=== PATIENT | male | born 1990 | race American Indian/Alaskan Native ===

== ENCOUNTER 2017-06-21 22:16 | Emergency (ER) | payer OTHER ==
[2017-06-21 23:37] LABS: Hematocrit 49.4 % (35.5-45.6); Hemoglobin 16.2 gm/dl (11.8-15.2); Mean Corpuscular HGB Conc 33 % (32-34); Mean Corpuscular Hemoglobin 29 pg (28-32); Mean Corpuscular Volume 87 fl (84-94); Platelet Count 201 K/mm3 (140-440); Red Blood Count 5.66 M/mm3 (3.65-5.03); White Blood Count 14.6 K/mm3 (4.5-11.0)
[2017-06-22] LABS: Alanine Aminotransferase 19 units/L (7-56); Albumin 5.6 g/dL (3.9-5); Albumin/Globulin Ratio 1.4 %; Alkaline Phosphatase 78 units/L (35-129); Anion Gap 24 mmol/L; BUN/Creatinine Ratio 9.28; Blood Urea Nitrogen 13 mg/dL (9-20); Calcium 10.7 mg/dL (8.4-10.2); Carbon Dioxide 23 mmol/L (22-30); Chloride 89.7 mmol/L (98-107); Glucose 165 mg/dL (75-100); Potassium 4.9 mmol/L (3.6-5.0); Sodium 132 mmol/L (137-145); Total Protein 9.7 g/dL (6.3-8.2)
[2017-06-22 01:41] LABS: Bilirubin,Urine MOD (Negative); Blood,Urine NEG (Negative); Ketones,Urine TR mg/dL (Negative); Leukocyte Esterase,Urine NEG (Negative); Mucus,Urine 3+ /HPF; Nitrite,Urine NEG (Negative)
[2017-06-22] MEDS ORDERED: NACL 0.9% 1000 ML 1,000 ML IV ONE (04:24)
[2017-06-22] MEDS ORDERED: ROCEPHIN/NS 1 GM/50 ML 1 GM/50 ML BAG IV ONE ×2 (04:35→04:41)
--- NOTE | 2017-06-22 04:52 | Emergency Department Report ---
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 Pt recalls having some dysuria. No fever, no rigors, no chills, no cough, no SOB MD complaint: nausea, vomiting, diarrhea, abdominal pain -: Gradual (yesterday) Description of Vomiting: food contents (recently ingested food materials), watery Description of Diarrhea: water Associated Abdominal Pain: Yes Location: diffuse Radiation: none Severity: moderate Pain Scale: 6 Quality: cramping, aching Consistency: intermittent Improves with: none Worsens with: none Associated Symptoms: loss of appetite, malaise, nausea/vomiting, dysuria, weakness. denies: myalgias, chest pain, cough, fever/chills, rash, shortness of breath, syncope - Related Data Previous Rx's Medication Instructions Recorded Last Taken Type Amoxicillin/K Clav Tab [Augmentin 1 tab PO Q12HR #20 tab 06/22/17 Unknown Rx 875 mg] Dicyclomine [Bentyl] 20 mg PO QID #24 tablet 06/22/17 Unknown Rx Ondansetron [Zofran TAB] 4 mg PO Q8HR PRN #16 tablet 06/22/17 Unknown Rx Allergies Allergy/AdvReac Type Severity Reaction Status Date / Time lactose Allergy Vomiting Verified 06/21/17 22:35 ED Review of Systems ROS: Stated complaint: N/V, DEHYDRATION Other details as noted in HPI Comment: All other systems reviewed and negative Constitutional: malaise, weakness. denies: chills, diaphoresis, fever Eyes: denies: eye pain, eye discharge, vision change ENT: denies: ear pain, throat pain, dental pain, hearing loss, epistaxis Respiratory: denies: cough, orthopnea, shortness of breath, SOB with exertion Cardiovascular: denies: chest pain, palpitations, dyspnea on exertion, edema, syncope Endocrine: denies: no symptoms reported, see HPI, excessive sweating, intolerance to cold, increased hunger, increased thirst, increased urine Gastrointestinal: abdominal pain, nausea, vomiting, diarrhea. denies: constipation, hematemesis, hematochezia Genitourinary: urgency, dysuria. denies: frequency, discharge Musculoskeletal: denies: back pain, joint swelling, arthralgia, myalgia Skin: denies: lesions, change in color, change in hair/nails Neurological: weakness. denies: headache, numbness ED Past Medical Hx - Past Medical History Previous Medical History?: No - Surgical History Past Surgical History?: No - Social History Smoking Status: Never Smoker Substance Use Type: None - Medications Home Medications: Home Medications Medication Instructions Recorded Confirmed Last Taken Type Amoxicillin/K Clav Tab [Augmentin 1 tab PO Q12HR #20 tab 06/22/17 Unknown Rx 875 mg] Dicyclomine [Bentyl] 20 mg PO QID #24 tablet 06/22/17 Unknown Rx Ondansetron [Zofran TAB] 4 mg PO Q8HR PRN #16 tablet 06/22/17 Unknown Rx ED Physical Exam - General Limitations: No Limitations General appearance: alert, in distress (mild to moderate) - Head Head exam: Present: atraumatic, normocephalic, normal inspection - Eye Eye exam: Present: normal appearance, PERRL, EOMI. Absent: scleral icterus, conjunctival injection Pupils: Present: normal accommodation - ENT ENT exam: Present: mucous membranes dry - Neck Neck exam: Present: normal inspection, tenderness, full ROM. Absent: meningismus, lymphadenopathy - Respiratory Respiratory exam: Present: normal lung sounds bilaterally. Absent: respiratory distress, wheezes, chest wall tenderness, accessory muscle use, decreased breath sounds - Cardiovascular Cardiovascular Exam: Present: regular rate, normal rhythm, normal heart sounds. Absent: tachycardia, irregular rhythm, systolic murmur - GI/Abdominal GI/Abdominal exam: Present: soft, tenderness (diffuse), hypoactive bowel sounds. Absent: rebound, rigid, pulsatile mass - Rectal Rectal exam: Present: deferred - Extremities Exam Extremities exam: Present: normal inspection, full ROM, normal capillary refill - Back Exam Back exam: Present: normal inspection, full ROM. Absent: CVA tenderness (L) - Neurological Exam Neurological exam: Present: alert, oriented X3, CN II-XII intact ED Course Vital Signs 06/21/17 06/22/17 06/22/17 22:35 05:04 05:05 Temperature 97.9 F 101.0 F H Pulse Rate 67 Respiratory 22 20 20 Rate Blood Pressure 113/69 Blood Pressure 136/87 [Left] O2 Sat by Pulse 100 100 Oximetry 06/22/17 06:35 Temperature 99.0 F Pulse Rate 55 L Respiratory 18 Rate Blood Pressure Blood Pressure 109/61 [Left] O2 Sat by Pulse 99 Oximetry - Reevaluation(s) Reevaluation #1: 06/22/17 07:16 Pt feels much better ED Medical Decision Making - Lab Data Result diagrams: 06/21/17 23:20 06/21/17 23:20 Critical Care Time: No Critical care attestation.: If time is entered above; I have spent that time in minutes in the direct care of this critically ill patient, excluding procedure time. ED Disposition Clinical Impression: UTI (urinary tract infection), Nausea and vomiting Disposition: TO HOME OR SELFCARE Is pt being admited?: No Does the pt Need Aspirin: No Condition: Stable Instructions: Urinary Tract Infection in Men (ED), Acute Nausea and Vomiting ( ED) Additional Instructions: Fluids and bed rest Prescriptions: Amoxicillin/K Clav Tab [Augmentin 875 mg] 1 tab PO Q12HR #20 tab Dicyclomine [Bentyl] 20 mg PO QID #24 tablet Ondansetron [Zofran TAB] 4 mg PO Q8HR PRN #16 tablet PRN Reason: Vomiting Referrals: PRIMARY CARE, [Primary Care Provider] - 3-5 Days Time of Disposition: 07:21
[2017-06-22] MEDS ORDERED: TORADOL ONE (05:01)
[2017-06-22] MEDS ORDERED: TORADOL IV ONE (05:03)
[2017-06-22 05:37] LABS: Anisocytosis 1+; Basophils % (Manual) 0 % (0.0-1.8); Blastocytes % (Manual) 0 %; Diff Status Complete; Eosinophils % (Manual) 0 % (0.0-4.3)
[2017-06-22 08:17] VITALS: BP 99/47
== END 2017-06-22 09:46 | disposition home or self-care (01) ==
LOC: ED 22:16
DX: N39.0 Urinary tract infection, site not specified (principal); R11.2 Nausea with vomiting, unspecified; Z91.040 Latex allergy status
CPT/HCPCS: 36415; 80053; 81001; 85007; 85025; 96365; 96375; 99283; J0696; J1885; J7030

== ENCOUNTER 2018-11-24 19:47 | Emergency (ER) | payer OTHER ==
--- NOTE | 2018-11-24 20:17 | Emergency Department Report ---
Chief Complaint: Abdominal Pain Stated Complaint: DEHYDRATION/ABDOMINAL PAIN/N/V Time Seen by Provider: 11/24/18 20:13 - HPI History of Present Illness: Pt is c/o N/V that began two days ago he states he also epigastric abdominal pain (+) dysuria has not been drinking water no diarrhea, no fever (+)smoke, non drinker (+) HIV, last had CD4 count in august which he believes was "400" VSS MSE complete MSE screening note: Focused history and physical exam performed. ED Disposition for MSE Condition: Stable
[2018-11-24] MEDS ORDERED: NACL 0.9% 1000 ML 1,000 ML IV ONE (20:18)
[2018-11-24 21:05] LABS: Basophils # (Auto) 0.1 K/mm3 (0.0-0.1); Basophils % (Auto) 0.9 % (0.0-1.8); Hematocrit 37.1 % (35.5-45.6); Hemoglobin 12.1 gm/dl (11.8-15.2); Lymphocytes % (Auto) 13.7 % (13.4-35.0); Mean Corpuscular HGB Conc 33 % (32-34); Mean Corpuscular Volume 71 fl (84-94); Monocytes # (Auto) 0.5 K/mm3 (0.0-0.8); Monocytes % (Auto) 6.8 % (0.0-7.3); Platelet Count 354 K/mm3 (140-440); Red Blood Count 5.22 M/mm3 (3.65-5.03); Red Cell Distribution Width 17.8 % (13.2-15.2)
[2018-11-24 21:10] LABS: Alanine Aminotransferase 24 units/L (7-56); BUN/Creatinine Ratio 15; Blood Urea Nitrogen 16 mg/dL (9-20); Calcium 9.9 mg/dL (8.4-10.2); Hemolysis Index 41
[2018-11-24] MEDS ORDERED: MORPHINE IV ONE (21:33)
[2018-11-24] MEDS ORDERED: TORADOL IV ONE (21:33)
[2018-11-24] MEDS ORDERED: ZOFRAN IV ONE (21:41)
[2018-11-24] MEDS ORDERED: ZOFRAN ONE (21:44)
--- NOTE | 2018-11-24 21:44 | Emergency Department Report ---
ED N/V/D HPI - General Chief complaint: Abdominal Pain Stated complaint: DEHYDRATION/ABDOMINAL PAIN/N/V Time Seen by Provider: 11/24/18 20:13 Source: patient Mode of arrival: Ambulatory Limitations: No Limitations - History of Present Illness Initial comments: 28-year-old male presents the ED with nausea, vomiting, abdominal pain 3 days. Patient denies diarrhea. States last bowel movement was today. Prior to today last bowel movement was prior to onset of symptoms. Patient reports subjective fevers and chills. States pain is located in the epigastric and lower abdomen. Patient reports history of HIV, CD4 count of approximately 300-400. Patient states he is currently on antivirals. MD complaint: nausea, vomiting, abdominal pain -: days(s) (3) Description of Vomiting: food contents, watery Associated Abdominal Pain: Yes Location: LLQ, RLQ, epigastric Radiation: none Severity: moderate Consistency: intermittent Improves with: none Worsens with: none Associated Symptoms: fever/chills - Related Data Previous Rx's Medication Instructions Recorded Last Taken Type Amoxicillin/K Clav Tab [Augmentin 1 tab PO Q12HR #20 tab 06/22/17 Unknown Rx 875 mg] Dicyclomine [Bentyl] 20 mg PO QID #24 tablet 06/22/17 Unknown Rx Ondansetron [Zofran TAB] 4 mg PO Q8HR PRN #16 tablet 06/22/17 Unknown Rx Ciprofloxacin HCl [Cipro] 500 mg PO BID #20 tablet 07/07/18 Unknown Rx Ibuprofen 800 mg PO TID PRN #30 tablet 07/07/18 Unknown Rx Dicyclomine [Bentyl] 20 mg PO QID PRN #20 tablet 11/24/18 Unknown Rx Phenazopyridine [Pyridium] 200 mg PO TID #3 tab 11/24/18 Unknown Rx Promethazine [Phenergan TAB] 25 mg PO Q6HR PRN #20 tab 11/24/18 Unknown Rx Sulfamethoxazole/Trimethoprim 1 each PO BID 10 Days #6 tablet 11/24/18 Unknown Rx [Bactrim DS TAB] Allergies Allergy/AdvReac Type Severity Reaction Status Date / Time lactose Allergy Vomiting Verified 06/21/17 22:35 ED Review of Systems ROS: Stated complaint: DEHYDRATION/ABDOMINAL PAIN/N/V Other details as noted in HPI Comment: All other systems reviewed and negative Constitutional: chills, fever ENT: denies: throat pain Respiratory: denies: cough Gastrointestinal: abdominal pain, nausea, vomiting. denies: diarrhea Genitourinary: denies: dysuria, frequency ED Past Medical Hx - Past Medical History Hx GERD: Yes Hx HIV: Yes (on anti-virals) Additional medical history: HIV - Surgical History Past Surgical History?: No - Social History Smoking Status: Never Smoker Substance Use Type: Marijuana - Medications Home Medications: Home Medications Medication Instructions Recorded Confirmed Last Taken Type Amoxicillin/K Clav Tab [Augmentin 1 tab PO Q12HR #20 tab 06/22/17 Unknown Rx 875 mg] Dicyclomine [Bentyl] 20 mg PO QID #24 tablet 06/22/17 Unknown Rx Ondansetron [Zofran TAB] 4 mg PO Q8HR PRN #16 tablet 06/22/17 Unknown Rx Ciprofloxacin HCl [Cipro] 500 mg PO BID #20 tablet 07/07/18 Unknown Rx Ibuprofen 800 mg PO TID PRN #30 tablet 07/07/18 Unknown Rx Dicyclomine [Bentyl] 20 mg PO QID PRN #20 tablet 11/24/18 Unknown Rx Phenazopyridine [Pyridium] 200 mg PO TID #3 tab 11/24/18 Unknown Rx Promethazine [Phenergan TAB] 25 mg PO Q6HR PRN #20 tab 11/24/18 Unknown Rx Sulfamethoxazole/Trimethoprim 1 each PO BID 10 Days #6 tablet 11/24/18 Unknown Rx [Bactrim DS TAB] ED Physical Exam - General Limitations: No Limitations General appearance: alert, in no apparent distress - Head Head exam: Present: atraumatic, normocephalic - Eye Eye exam: Present: normal appearance - ENT ENT exam: Present: mucous membranes moist - Neck Neck exam: Present: normal inspection - Respiratory Respiratory exam: Present: normal lung sounds bilaterally. Absent: respiratory distress - Cardiovascular Cardiovascular Exam: Present: regular rate, normal rhythm - GI/Abdominal GI/Abdominal exam: Present: soft. Absent: distended, tenderness - Extremities Exam Extremities exam: Present: normal inspection - Neurological Exam Neurological exam: Present: alert, oriented X3 - Psychiatric Psychiatric exam: Present: normal affect, normal mood - Skin Skin exam: Present: warm, dry, intact, normal color ED Course Vital Signs 11/24/18 11/24/1811/24/19 20:14 21:19 22:00 Temperature 99.4 F 98.8 F Pulse Rate 66 54 L Respiratory 18 19 Rate Blood Pressure 122/72 126/83 Blood Pressure 141/93 [Left] O2 Sat by Pulse 98 100 100 Oximetry 11/24/18 23:00 Temperature Pulse Rate Respiratory Rate Blood Pressure 123/88 Blood Pressure [Left] O2 Sat by Pulse 100 Oximetry ED Medical Decision Making - Lab Data Result diagrams: 11/24/18 20:25 11/24/18 20:25 - Radiology Data Radiology results: report reviewed, image reviewed - Medical Decision Making 28-year-old male with nausea and vomiting 3 days. Patient appears nontoxic. Vital signs normal. Labs reveal hyponatremia with sodium of 129, remainder of labs are unremarkable. Patient given normal saline IV bolus, Toradol, Zofran for symptomatic relief. Patient feeling much better at this time. Abdominal series negative. UA does show mild UTI, patient having suprapubic pain. Will discharge at this time, treat UTI with antibiotics. Return precautions given, the patient follow-up advised with his infectious disease physician. - Differential Diagnosis bowel obnstruction, UTI, pancreatitis, gastritis Critical care attestation.: If time is entered above; I have spent that time in minutes in the direct care of this critically ill patient, excluding procedure time. ED Disposition Clinical Impression: UTI (urinary tract infection), Hyponatremia Disposition: - TO HOME OR SELFCARE Is pt being admited?: No Condition: Stable Instructions: Urinary Tract Infection in Men (ED), Hyponatremia (ED) Prescriptions: Dicyclomine [Bentyl] 20 mg PO QID PRN #20 tablet PRN Reason: abdominal pain Phenazopyridine [Pyridium] 200 mg PO TID #3 tab Promethazine [Phenergan TAB] 25 mg PO Q6HR PRN #20 tab PRN Reason: Nausea Sulfamethoxazole/Trimethoprim [Bactrim DS TAB] 1 each PO BID 10 Days #6 tablet Referrals: PRIMARY CARE, [Referring] - 3-5 Days Time of Disposition: 23:44
--- NOTE | 2018-11-24 22:18 | XRay Report ---
PROCEDURE: XR ABD SERIES W CXR 1V TECHNIQUE: Semiupright AP view of the chest was obtained as well as flat and upright view of the abd omen. HISTORY: n/v COMPARISONS: None FINDINGS: The lungs are clear. No infiltrates masses effusions or pneumothorax visualized. Heart size and pulmo nary vasculature appear normal. Nonspecific bowel gas pattern is present. No evidence for ileus, obst ruction or free intraperitoneal gas. No abnormal masses or calcifications are seen. No acute bone abn ormalities are identified. IMPRESSION: Negative exam.. This document is electronically signed by Sabino Ames MD., November 24 2018 10:16:17 PM ET
[2018-11-24 23:26] LABS: Bacteria,Urine 1+ /HPF (Negative); Bilirubin,Urine NEG (Negative); Blood,Urine NEG (Negative); Color,Urine Amber (Yellow); Mucus,Urine 3+ /HPF; Urobilinogen,Urine < 2.0 mg/dL (<2.0)
[2018-11-25 00:04] VITALS: BP 123/88
== END 2018-11-25 00:05 | disposition home or self-care (01) ==
LOC: ED 19:47
DX: E87.1 Hypo-osmolality and hyponatremia (principal); N39.0 Urinary tract infection, site not specified
CPT/HCPCS: 36415; 74022; 80053; 81001; 83690; 85025; 96361; 96374; 96375; 99284; J1885; J2405; J7030